=== PATIENT | male | born 1995 | race Caucasian/White ===

== ENCOUNTER 2020-09-11 00:40 | Emergency (ER) | payer BC, SELFPAY ==
[2020-09-11 00:54] VITALS: BP 120/67; PULSE 80; RESP 18; TEMP 36.7; O2SAT 100; BMI 27.1
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
[2020-09-11] MEDS: morphine 4 mg/mL SDV 1 mL 2 MG IVP (01:18)
[2020-09-11 02:10] VITALS: BP 114/63; PULSE 80; RESP 16; O2SAT 97
[2020-09-11] MEDS: ondansetron 2 mg/ML SDV 2 mL 4 MG IVP (02:10)
[2020-09-11 02:20] VITALS: BP 170/102; PULSE 107; RESP 20; O2SAT 99
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
[2020-09-11 02:43] VITALS: BP 162/100; PULSE 111; RESP 31; O2SAT 96
[2020-09-11 02:54] VITALS: BP 162/100; PULSE 101; RESP 17; O2SAT 98
[2020-09-11 04:04] VITALS: BP 128/74; PULSE 98; RESP 20; O2SAT 95
--- NOTE | 2020-09-13 09:02 | DCPLANNER ---
manager [employer] had message to schedule a follow up appointment for patient with ortho for a distal radial fracture. manager [employer] called the ortho clinic, spoke with Alexa, gave clinic patients information. manager [employer] was told that patients information would be printed and reviewed. Clinic will call patient with appointment information.
--- NOTE | 2020-09-14 07:48 | DCPLANNER ---
Patient has a follow up appointment scheduled for Thursday, September 14 at 2:[address] Blanco at [facility]. Clinic will call patient with appointment information.
--- NOTE | 2020-10-14 15:21 | DCPLANNER ---
Patient had a follow up appointment scheduled for 09.14.20 with ortho - patient did attend appointment.
== END 2020-09-11 04:04 | disposition home or self-care (01) ==
PROVIDERS: Emergency Provider Physician Assistant; PCP Internal Medicine
DX: S52.501A Unspecified fracture of the lower end of right radius, initial encounter for closed fracture (principal); S52.614A Nondisplaced fracture of right ulna styloid process, initial encounter for closed fracture; V86.59XA Driver of other special all-terrain or other off-road motor vehicle injured in nontraffic accident, initial encounter
CPT/HCPCS: 25605; 73090; 73100; 73110; 96374; 96375; 99284; J2270; J2405; J3490

== ENCOUNTER → 2020-09-14 15:16 | Outpatient (BNVA) | payer BC, SELFPAY | PROVIDERS: PCP Nurse Practitioner Family; Referring Provider Physician Assistant; Visit Provider Orthopaedic Surgery | DX: S52.501A Unspecified fracture of the lower end of right radius, initial encounter for closed fracture (principal); S52.614A Nondisplaced fracture of right ulna styloid process, initial encounter for closed fracture; X58.XXXA Exposure to other specified factors, initial encounter | CPT/HCPCS: 73110 ==

== ENCOUNTER → 2020-09-21 15:49 | Outpatient (BNVA) | payer BC, SELFPAY | PROVIDERS: PCP Nurse Practitioner Family; Visit Provider Orthopaedic Surgery | DX: S52.614D Nondisplaced fracture of right ulna styloid process, subsequent encounter for closed fracture with routine healing (principal); X58.XXXD Exposure to other specified factors, subsequent encounter | CPT/HCPCS: 73110 ==

== ENCOUNTER 2020-09-21 16:35 | Outpatient (CLI) | payer BC, SELFPAY | END 2020-09-21 16:36 | disposition home or self-care (01) | LOC: SPT 16:36 | PROVIDERS: PCP Nurse Practitioner Family; Visit Provider Orthopaedic Surgery | DX: Z46.89 Encounter for fitting and adjustment of other specified devices (principal); S52.501D Unspecified fracture of the lower end of right radius, subsequent encounter for closed fracture with routine healing; X58.XXXD Exposure to other specified factors, subsequent encounter | CPT/HCPCS: 97760; L3982 ==

== ENCOUNTER → 2020-10-05 15:50 | Outpatient (BNVA) | payer BC, SELFPAY | PROVIDERS: PCP Nurse Practitioner Family; Visit Provider Orthopaedic Surgery | DX: S52.501D Unspecified fracture of the lower end of right radius, subsequent encounter for closed fracture with routine healing (principal); S52.614D Nondisplaced fracture of right ulna styloid process, subsequent encounter for closed fracture with routine healing; X58.XXXD Exposure to other specified factors, subsequent encounter | CPT/HCPCS: 73110 ==

== ENCOUNTER → 2020-10-19 15:19 | Outpatient (BNVA) | payer BC, SELFPAY | PROVIDERS: PCP Nurse Practitioner Family; Visit Provider Orthopaedic Surgery | DX: S52.501D Unspecified fracture of the lower end of right radius, subsequent encounter for closed fracture with routine healing (principal); S52.614D Nondisplaced fracture of right ulna styloid process, subsequent encounter for closed fracture with routine healing; X58.XXXD Exposure to other specified factors, subsequent encounter | CPT/HCPCS: 73110 ==

== ENCOUNTER 2021-02-25 15:16 | Observation (INO) | payer BC, SELFPAY ==
[2021-02-25 15:41] VITALS: BP 125/73; PULSE 93; RESP 18; TEMP 37.3; O2SAT 100; BMI 26.6
--- NOTE | 2021-02-25 17:40 | CTR_ITS ---
PROCEDURE INFORMATION: Exam: CT Pelvis With Contrast Exam date and time: 02/25/2021 5:40 PM Age: 25 years old Clinical indication: Other: Perirectal abscess; Prior surgery; Surgery type: Rectal in 2017 TECHNIQUE: Imaging protocol: Computed tomography images of the pelvis with intravenous contrast. Radiation optimization: All CT scans at this facility use at least one of these dose optimization techniques: automated exposure control; mA and/or kV adjustment per patient size (includes targeted exams where dose is matched to clinical indication); or iterative reconstruction. Contrast material: OMNI 300; Contrast volume: 95 ml; Contrast route: INTRAVENOUS (IV); COMPARISON: CT Abdomen/Pelvis [facility] [address] 04/11/2016 3:12 PM RADIATION DOSE METRICS: Total DLP (mGy-cm): 361.19 FINDINGS: Intestines: No evidence of intestinal obstruction. The appendix is normal. Intraperitoneal space: Unremarkable. No free air. No significant fluid collection. Lymph nodes: Unremarkable. No enlarged lymph nodes. Urinary bladder: Mild urinary bladder wall thickening is noted. Reproductive: Normal as visualized. Bones/joints: Unremarkable. No acute fracture. No dislocation. Soft tissues: U -shaped abscess is noted in the anorectal region measuring approximately 8.5 x 2.[address]/CT pelvis w con* [id number] IMPRESSION: 1. Anorectal U -shaped abscess. 2. Possible mild cystitis, correlate with urinalysis. Radiation Dose CTDIVOL = (mGy): DLP = 361.19 (mGy-cm)
--- NOTE | 2021-02-25 17:43 | ED_ITS ---
Documented by User: Nehemias Gutierrez DO 03/01/21 05:51 HPI - Skin/Abscess/Foreign Bdy General: Chief complaint: Skin/Abscess/Foreign Body Stated complaint: ABSCESS/BOTTOM Time Seen by Provider: 02/25/21 17:21 History of Present Illness: HPI narrative: 25-year-old male who presents to the emergency room with complaint of a perirectal abscess. Years ago he had it removed surgically which recurred he has been just managing it and tolerating it for the last several years actually it has gotten much worse earlier this week he was seen by a local PA started on some oral antibiotics and given pain medications he then followed up with the surgeon who arranged for him to have a CT but he has not had it done yet. complaint: abscess/boil Onset (ago): month(s) Severity: moderate Quality: aching Pain Consistency: constant Relieving factors: none Exacerbating factors: none Associated symptoms: Deny chills, fever(s), nausea or vomiting Treatments prior to arrival: antibiotic Review of Systems Const: Denies: fever(s), chills, body aches, change in appetite, fatigue or malaise ENMT: Denies: throat pain, ear or mastoid pain, nasal discharge or nasal congestion Card: Denies: chest pain, edema, dyspnea on exertion or orthopnea Resp: Denies: dyspnea, productive cough or non-productive cough GI: Denies: abdominal pain, nausea, vomiting, hematemesis, coffee ground emesis, diarrhea, constipation, bloating, hematochezia or melena : Denies: flank pain, dysuria, urinary frequency or urinary urgency Skin/Breast: Denies: rash or pruritus PFSH ED PFSH: Medical History Abscess, anorectal Social History Smoking and tobacco status: current every day smoker e-cigarettes Physical Exam Const: COMMON NORMALS: no acute distress GENERAL APPEARANCE: cooperative and comfortable ORIENTATION/CONSCIOUSNESS: Yes awake, Yes oriented to person, Yes oriented to place and Yes oriented to time HENMT: COMMON NORMALS: normocephalic, atraumatic and hearing grossly normal bilaterally HEAD & SCALP: normocephalic and atraumatic Neck/C-Spine: COMMON NORMALS: no JVD Resp: COMMON NORMALS: normal respiratory effort, No retractions, No use of accessory muscles and clear to auscultation bilaterally AUSCULTATION: clear to auscultation bilaterally Cardio: COMMON NORMALS: no JVD, regular rate, regular rhythm and No murmurs present (Cardio) RATE: regular rate RHYTHM: regular rhythm GI: COMMON NORMALS: Soft to palpation and No hepatosplenomegaly present AUSCULTATION: Yes normoactive bowel sounds PALPATION: Yes Soft to palpation, No Tenderness to palpation present (GI), No Guarding due to palpation present (GI) and Yes No hepatosplenomegaly present OTHER: Purulent drainage from left perirectal abscess. No active bleeding. Extremity: COMMON NORMALS: normal to inspection, capillary refill normal, no clubbing, cyanosis or edema, no calf tenderness and no pedal edema Neuro: SENSORIUM/ORIENTATION: Yes oriented to person, Yes oriented to place and Yes oriented to time Skin: COMMON NORMALS: no rashes or lesions noted GENERAL SKIN EXAM: no rashes or lesions noted Course Vital Signs: Vital signs: Vital Signs Temperature 98.2 F 02/26/21 18:41 Pulse Rate 71 02/26/21 18:41 Respiratory Rate 16 02/26/21 18:41 Blood Pressure 105/69 02/26/21 18:41 Pulse Oximetry 95 02/26/21 18:41 MDM - Skin/Abscess/Foreign Bdy MDM Narrative: Medical decision making narrative: Care turned over to Dr. May at change of shift see his notes for final diagnosis and disposition Lab Data: Labs: Lab Results 02/25/21 02/25/21 18:00 18:00 WBC 10.3 10^3/uL H 10 ^3/uL (4.0-10.0) RBC 4.82 10^6/uL 10^6 /uL (4.1-5.3) Hgb 13.7 g/dL g/dL (11.7-16.6) Hct 41.7 % L % (42.0-52.0) MCV 86.5 fl fl (80-94) MCH 28.4 pg pg (28.0-34.0) MCHC 32.9 g/dL g/dL (30.0-36.0) RDW 12.9 % % (12.1-15.1) Plt Count 247 10^3/cmm 10^3 /cmm (130-400) MPV 10.2 fL fL (7.4-10.4) Neut % (Auto) 78.9 % % Lymph % (Auto) 12.4 % % [place] % (Auto) 7.4 % % Eos % (Auto) 0.7 % % Baso % (Auto) 0.4 % % Neut # (Auto) 8.17 10^3/uL H 10 ^3/uL (1.8-7.7) Lymph # (Auto) 1.3 10^3/uL 10^3/ uL (0.8-4.8) [place] # (Auto) 0.8 10^3/uL 10^3/ uL (0.2-0.9) Eos # (Auto) 0.1 10^3/uL 10^3/ uL (0.0-0.8) Baso # (Auto) 0.0 10^3/uL 10^3/ uL (0.0-0.1) Nucleated RBC % (a uto) 0 % % Nucleated RBCs # 0.0 /100WBC /100W BC Sodium 136 mmol/L mmol/L (136-145) Potassium 3.8 mmol/L mmol/L (3.5-5.1) Chloride 99 mmol/L mmol/L (98-107) Carbon Dioxide 26 mmol/L mmol/L (22-29) Anion Gap 14.8 (5-19) BUN 13 mg/dL mg/dL (6-20) Creatinine 0.7 mg/dL mg/dL (0.7-1.2) GFR Calculation 137.4 mL/min H mL /min (90-130) Glucose 95 mg/dL mg/dL (65-115) Calculated Osmolal ity 282 mOsm/kg L mOs m/kg (285-295) Calcium 8.9 mg/dL mg/dL (8.5-10.5) Total Bilirubin 0.4 mg/dL mg/dL (0.15-1.2) AST 17 U/L U/L (0-40) ALT 25 U/L U/L (0-41) Alkaline Phosphata se 128 IU/L IU/L (40-130) Total Protein 7.0 g/dL g/dL (6.6-8.7) Albumin 4.1 g/dL g/dL (3.5-5.2) Globulin 2.9 g/dL g/dL (1.3-4.6) Discharge Plan Discharge Patient Disposition: Placed in Observation Admit Provider: Tree Alonso Clinical Impression: Abscess, anorectal Discharge Diet: Advance as tolerated Discharge Activity: Increase activity as tolerated Coding Level of Care Code ED [place] for Chg Fwd Exam Comprehensive Documented by User: Ty May DO 02/26/21 02:50 HPI - Skin/Abscess/Foreign Bdy General: Chief complaint: Skin/Abscess/Foreign Body Stated complaint: ABSCESS/BOTTOM Time Seen by Provider: 02/25/21 17:21 PFSH ED PFSH: Medical History Abscess, anorectal Social History Smoking and tobacco status: current every day smoker e-cigarettes Course Vital Signs: Vital signs: Vital Signs Temperature 98.2 F 02/26/21 18:41 Pulse Rate 71 02/26/21 18:41 Respiratory Rate 16 02/26/21 18:41 Blood Pressure 105/69 02/26/21 18:41 Pulse Oximetry 95 02/26/21 18:41 MDM - Skin/Abscess/Foreign Bdy MDM Narrative: Medical decision making narrative: Healthy 25-year-old male with a history of perirectal abscess checked out to me by Dr. Gutierrez at shift change. This gentleman has a tender red indurated and draining perirectal abscess. His white blood cell count is 10. His temperature is 99. By CT scan of the pelvis, he has a U-shaped anal rectal abscess measuring 8.5 cm. Spoke with surgery. He will take to the OR in the morning. Lab Data: Labs: Lab Results 02/25/21 02/25/21 18:00 18:00 WBC 10.3 10^3/uL H 10 ^3/uL (4.0-10.0) RBC 4.82 10^6/uL 10^6 /uL (4.1-5.3) Hgb 13.7 g/dL g/dL (11.7-16.6) Hct 41.7 % L % (42.0-52.0) MCV 86.5 fl fl (80-94) MCH 28.4 pg pg (28.0-34.0) MCHC 32.9 g/dL g/dL (30.0-36.0) RDW 12.9 % % (12.1-15.1) Plt Count 247 10^3/cmm 10^3 /cmm (130-400) MPV 10.2 fL fL (7.4-10.4) Neut % (Auto) 78.9 % % Lymph % (Auto) 12.4 % % [place] % (Auto) 7.4 % % Eos % (Auto) 0.7 % % Baso % (Auto) 0.4 % % Neut # (Auto) 8.17 10^3/uL H 10 ^3/uL (1.8-7.7) Lymph # (Auto) 1.3 10^3/uL 10^3/ uL (0.8-4.8) [place] # (Auto) 0.8 10^3/uL 10^3/ uL (0.2-0.9) Eos # (Auto) 0.1 10^3/uL 10^3/ uL (0.0-0.8) Baso # (Auto) 0.0 10^3/uL 10^3/ uL (0.0-0.1) Nucleated RBC % (a uto) 0 % % Nucleated RBCs # 0.0 /100WBC /100W BC Sodium 136 mmol/L mmol/L (136-145) Potassium 3.8 mmol/L mmol/L (3.5-5.1) Chloride 99 mmol/L mmol/L (98-107) Carbon Dioxide 26 mmol/L mmol/L (22-29) Anion Gap 14.8 (5-19) BUN 13 mg/dL mg/dL (6-20) Creatinine 0.7 mg/dL mg/dL (0.7-1.2) GFR Calculation 137.4 mL/min H mL /min (90-130) Glucose 95 mg/dL mg/dL (65-115) Calculated Osmolal ity 282 mOsm/kg L mOs m/kg (285-295) Calcium 8.9 mg/dL mg/dL (8.5-10.5) Total Bilirubin 0.4 mg/dL mg/dL (0.15-1.2) AST 17 U/L U/L (0-40) ALT 25 U/L U/L (0-41) Alkaline Phosphata se 128 IU/L IU/L (40-130) Total Protein 7.0 g/dL g/dL (6.6-8.7) Albumin 4.1 g/dL g/dL (3.5-5.2) Globulin 2.9 g/dL g/dL (1.3-4.6) Discharge Plan Discharge Patient Disposition: Placed in Observation Admit Provider: Tree Alonso Clinical Impression: Abscess, anorectal Discharge Diet: Advance as tolerated Discharge Activity: Increase activity as tolerated Coding Level of Care Code ED [place] for Chg Fwd Exam Comprehensive
[2021-02-25 18:00] VITALS: BP 131/77; PULSE 86; RESP 16; O2SAT 95; O2SAT 98
[2021-02-25] MEDS: morphine 4 mg/mL SDV 1 mL IVP ×2 (18:00→23:39)
[2021-02-25] MEDS: sodium chloride 0.9% 1,000 ML 999 ML IV (18:00)
[2021-02-25] MEDS: ondansetron 2 mg/ML SDV 2 mL 4 MG IVP (18:00)
--- NOTE | 2021-02-25 18:05 | PC.NURSE ---
pt taken to CT by stretcher with tech
[2021-02-25 18:26] LABS: Basophils % 0.4 %; Eosinophils # 0.1 10^3/uL (0.0-0.8); Eosinophils % 0.7 %; Hematocrit 41.7 % (42.0-52.0); Hemoglobin 13.7 g/dL (11.7-16.6); Lymphocytes # 1.3 10^3/uL (0.8-4.8); Lymphocytes % 12.4 %; Mean Corpuscular HGB Conc 32.9 g/dL (30.0-36.0); Mean Corpuscular Hemoglobin 28.4 pg (28.0-34.0); Mean Corpuscular Volume 86.5 fl (80-94); Mean Platelet Volume 10.2 fL (7.4-10.4); Monocytes # 0.8 10^3/uL (0.2-0.9); Monocytes % 7.4 %; Neutrophils # 8.17 10^3/uL (1.8-7.7); Neutrophils % 78.9 %; Nucleated Red Blood Cells % 0 %; Platelet Count 247 10^3/cmm (130-400); Red Blood Count 4.82 10^6/uL (4.1-5.3); Red Cell Distribution Width 12.9 % (12.1-15.1); White Blood Count 10.3 10^3/uL (4.0-10.0)
--- NOTE | 2021-02-25 18:38 | PC.NURSE ---
pt oriented to room. pt placed in gown. pt on hemodynamic monitoring. call light within reach.
[2021-02-25 18:40] LABS: Albumin Level 4.1 g/dL (3.5-5.2); Alkaline Phosphatase 128 IU/L (40-130); Anion Gap 14.8 (5-19); Aspartate Amino Transferase 17 U/L (0-40); Blood Urea Nitrogen 13 mg/dL (6-20); Calcium 8.9 mg/dL (8.5-10.5); Carbon Dioxide 26 mmol/L (22-29); Chloride 99 mmol/L (98-107); Globulin 2.9 g/dL (1.3-4.6); Glomerular Filtration Rate 137.4 mL/min (90-130); Glucose 95 mg/dL (65-115); Osmolality Calculated 282 mOsm/kg (285-295); Potassium 3.8 mmol/L (3.5-5.1); Sodium 136 mmol/L (136-145); Total Bilirubin 0.4 mg/dL (0.15-1.2)
[2021-02-25 18:50] LABS: Alanine Aminotransferase 25 U/L (0-41)
[2021-02-25] MEDS: iohexol 300 mg/mL 100 mL Btl IV (19:02)
[2021-02-25 22:21] VITALS: BP 103/64; PULSE 76; RESP 18; TEMP 36.8; O2SAT 95; BMI 26.6
[2021-02-25] MEDS: lactated ringers 1,000 ML 150 ML IV (22:50)
[2021-02-25] MEDS: ciprofloxacin 400 MG/200 ML PREMIX 200 MG IV (22:50)
[2021-02-25] MEDS: metroNIDAZOLE IV 500 MG/100 ML PREMIX 100 MG IV (22:51)
[2021-02-25 23:39] VITALS: RESP 18
[2021-02-26] VITALS (22 sets, daily range): BP systolic 83–148; BP diastolic 60–92; PULSE 67–102; RESP 16–18; TEMP 36.3–36.8; O2SAT 90–98
[2021-02-26] MEDS: morphine 4 mg/mL SDV 1 mL IVP (04:32)
[2021-02-26] MEDS: lactated ringers 1,000 ML 150 ML IV ×2 (04:33→16:00)
[2021-02-26 05:21] LABS: Basophils % 0.4 %; Eosinophils # 0.2 10^3/uL (0.0-0.8); Eosinophils % 2.1 %; Hematocrit 40.1 % (42.0-52.0); Hemoglobin 13.1 g/dL (11.7-16.6); Lymphocytes # 1.4 10^3/uL (0.8-4.8); Lymphocytes % 19.8 %; Mean Corpuscular HGB Conc 32.7 g/dL (30.0-36.0); Mean Corpuscular Hemoglobin 28.7 pg (28.0-34.0); Mean Corpuscular Volume 87.7 fl (80-94); Mean Platelet Volume 10.3 fL (7.4-10.4); Monocytes # 0.8 10^3/uL (0.2-0.9); Monocytes % 10.5 %; Neutrophils # 4.77 10^3/uL (1.8-7.7); Neutrophils % 66.9 %; Nucleated Red Blood Cells % 0 %; Platelet Count 221 10^3/cmm (130-400); Red Blood Count 4.57 10^6/uL (4.1-5.3); White Blood Count 7.1 10^3/uL (4.0-10.0)
[2021-02-26 05:39] LABS: Alanine Aminotransferase 19 U/L (0-41); Albumin Level 3.2 g/dL (3.5-5.2); Alkaline Phosphatase 104 IU/L (40-130); Anion Gap 10.7 (5-19); Aspartate Amino Transferase 12 U/L (0-40); Blood Urea Nitrogen 13 mg/dL (6-20); Calcium 8.2 mg/dL (8.5-10.5); Carbon Dioxide 27 mmol/L (22-29); Chloride 103 mmol/L (98-107); Globulin 2.2 g/dL (1.3-4.6); Glomerular Filtration Rate 117.8 mL/min (90-130); Glucose 93 mg/dL (65-115); Osmolality Calculated 284 mOsm/kg (285-295); Potassium 3.7 mmol/L (3.5-5.1); Sodium 137 mmol/L (136-145); Total Bilirubin 0.5 mg/dL (0.15-1.2); Total Protein 5.4 g/dL (6.6-8.7)
--- NOTE | 2021-02-26 06:09 | P.HP_ITS ---
Providers/Chief Complaint Admitting Physician: Tree Alonso MD Primary Care Provider: IRMA Barron Chief Complaint: ABSCESS/BOTTOM History of Present Illness Chief Complaint: I am hurting in the bottom History of present illness: Mr. Franchesca Leiva is a 25 year old male resents to the emergency department complaining of perianal pain and discomfort. Before few years patient had incision and drainage of a perianal abscess. But earlier this week he started to encounter worsening pain and was placed on oral antibiotics per a local physician business services assistant. The plan to follow-up with surgery and apparently the patient had a CT scan supposedly scheduled to investigate this pathology more. But as his symptoms got worse came to the ER with constant pain around the perianal area nothing seems to make it better or worse. Patient denies other institutional symptoms in the form of fevers chills nausea or vomiting. Patient undergone a CT scan of the pelvis with contrast that showed 1. Anorectal U -shaped abscess. 2. Possible mild cystitis, correlate with urinalysis. General surgery was consulted for further evaluation, as I elected to have the patient admitted to my service for potential exam under anesthesia and incision and drainage. After further history taking patient reports that back in 2017 he did have an incision and drainage of left perianal abscess. And he was told to remove the packing after surgery and followed up with his surgeon till it was healed. For the past couple of years patient consistently have had intermittent perianal discharge. And a while ago he did have an episode of bleeding per rectum that was treated conservatively per patient's description as it did not happen again. Patient reports when I asked him that he heard about history of Crohn's disease in the family but he is not sure who had it, also he never had a colonoscopy before. Review of Systems General: Reports: 10 or more systems reviewed and unremarkable except in HPI and below Medications/Allergies Home Medications Medication Instructions Recorded Confirmed Last Taken Type hydrocodone-acetaminophen 1 tab PO Q4H PRN #20 tab 09/11/20 10/19/20 Unknown Rx escitalopram oxalate 10 mg tablet 10 mg PO DAILY 09/14/20 10/19/20 Unknown History Fast Form Cock Up Splint #1 ea 09/21/20 10/19/20 Unknown Rx Allergies Allergy/AdvReac Type Severity Reaction Status Date / Time No Known Allergies Allergy Verified 10/19/20 15:06 PFSH Acute PFSH: Social History Smoking and tobacco status: current every day smoker e-cigarettes Vitals/I&O/Wt Last Vital Signs Temp 97.9 F 02/26/21 03:29 Pulse 71 02/26/21 03:29 Resp 18 02/26/21 04:32 BP 117/63 02/26/21 03:29 Pulse Ox 95 02/26/21 03:29 02/25/21 02/25/21 02/26/21 14:59 22:59 06:59 Intake Total 1000 / 1000 1157.5 / 2157.5 Balance 1000 / 1000 1157.5 / 2157.5 Weight last 48 hrs Weight 170 lb Weight 170 lb Physical Exam Const: COMMON NORMALS: no acute distress and patient oriented x3 GENERAL APPEARANCE: cooperative ORIENTATION/CONSCIOUSNESS: Yes awake, Yes oriented to person, Yes oriented to place and Yes oriented to time HENMT: COMMON NORMALS: normocephalic HEAD & SCALP: normocephalic Eye: COMMON NORMALS: Equal, round and reactive pupils present and no scleral icterus PUPIL: Yes Equal, round and reactive pupils present Lymph: LYMPHATIC: no lymphadenopathy noted Chest: COMMONS NORMALS: normal inspection of the chest Resp: COMMON NORMALS: normal respiratory effort and clear to auscultation bilaterally AUSCULTATION: clear to auscultation bilaterally Cardio: COMMON NORMALS: S1 normal heart sound present and S2 normal heart sound present; negative for No murmurs present (Cardio) HEART SOUNDS: S1 normal heart sound present and S2 normal heart sound present GI: COMMON NORMALS: Soft to palpation; negative for No hepatosplenomegaly present INSPECTION: Yes normal to inspection PALPATION: Yes Soft to palpation, No Firmness to palpation present (GI), No Tenderness to palpation present (GI), No Guarding due to palpation present (GI), No Rigid due to palpation and No No hepatosplenomegaly present RECTAL EXAM: No hemorrhoids, Yes Fistula present (GI) (At 3 o'clock position there is evidence of sinus with mild drainage, no obv), No Laceration(s) present (GI), No Excoriation present (GI), No Anal fissure(s) present, No mass and Yes tenderness OTHER: Actual digital rectal examination was deferred due to pain. So sphincteric tone was not assessed during this clinical encounter due to patient's discomfort. Neuro: COMMON NORMALS: patient oriented x3 SENSORIUM/ORIENTATION: Yes oriented to person, Yes oriented to place and Yes oriented to time Psych: COMMON NORMALS: mental status grossly normal Skin: COMMON NORMALS: no rashes or lesions noted GENERAL SKIN EXAM: no rashes or lesions noted Data : 02/26/21 04:36 02/26/21 04:36 Micro: Microbiology 02/25/21 18:05 Blood Culture - Preliminary Blood SPECIMEN COLLECTED 02/25/21 18:00 Blood Culture - Preliminary Blood SPECIMEN COLLECTED A&P Assessment and plan (1) Abscess, anorectal: After thorough history physical examination and reviewing the chart and images with my personal interpretation. Patient appears to have a recurrent p erianal abscess with a draining sinus at 3 o'clock position that would require examination under anesthesia and drainage with packing. Indications, risks, benefits and alternatives all discussed with the patient and his aunt and in the presence of nursing staff Meghann Taylor. I did discuss in depth and in length the potential risks of infection, bleeding, potential injury of vital structures including but not limited to the external sphincter that may lead to partial or complete incontinence, patient may require future surgical interventions if were to develop a complicated fistula. Which can end up by having a colostomy for diversion of stools. The patient understands that postoperative course will require longer term wound care till he is able to get back to work without limitations. Patient understands and he agrees to proceed with surgery accordingly. An informed consent per chart Status: Acute Attestations Medical Necessity Statement*: Observation status for perioperative care Time Spent in Patient Care: Greater than 35 minutes (>than 50% of time spent in counselling and/or direct pt care on unit) . Coding Level of Care Code Acute Multiple Spindle Screw Machine Operator for [facility] Fwd Exam Comprehensive Diagnoses Abscess, anorectal K61.2
[2021-02-26] MEDS: metroNIDAZOLE IV 500 MG/100 ML PREMIX 100 MG IV ×2 (06:34→15:55)
--- NOTE | 2021-02-26 07:15 | PC.NURSE ---
Received report from Meghann RN on associate merchandise planner. Patient gone to surgery at this time.
--- NOTE | 2021-02-26 07:59 | P.ANESASSM_ITS ---
Pre-Anesthetic Assessment Pre-Anesthetic Assessment: Height/Weight: Height 1.7 m Weight 77.111 kg Temp Pulse Resp BP Pulse Ox 97.9 F 71 18 117/63 95 02/26/21 03:29 02/26/21 03:29 02/26/21 04:32 02/26/21 03:29 02/26/21 03:29 Preop Diagnosis: Perianal abscess Proposed Procedure: Operation Date: 02/26/21 08:10 Proposed Procedures p Perirectal Abscess(Not Applicable) - Tree Alonso MD Was Beta Aliyah taken within 24 hours: N/A Was Clonidine taken within 24 hours: N/A Social: Social History: Tobacco and No alcohol Exam: Pre-Anes Outpt Exam: alert, oriented x 3, clear to auscultation bilaterally and regular rate & rhythm Airway: Submandibular: WNL Cervical ROM: WNL MP: 2 Dentition: Chipped and Loose Pulmonary: Pulmonary: COPD Neuropsych: Neuropsych: Anxiety Anesthetic Plan: ASA status: 2 Anesthesia: General Risk of > 500 ml blood loss (7ml/kg in children): No Meds/Allergies Current Medications: Current Medications Generic Name Dose Route Start Last Admin Trade Name Freq PRN Reason Stop Dose Admin Lactated Ringer's 1,000 mls @ 150 m ls/hr 02/25/21 22:11 02/26/21 04:33 Lactated Ringers IV 150 mls/hr .[id number] SANDRA Administration Ciprofloxacin/Dext jimi 400 mg in 200 mls @ 200 mls/hr 02/25/21 22:11 02/26/21 00:41 Cipro IV Infused Q12H SANDRA Infusion Protocol Metronidazole 500 mg in 100 mls @ 100 mls/hr 02/25/21 23:11 02/26/21 06:34 Flagyl Iv IV 100 mls/hr Q8H SANDRA Administration Protocol Morphine Sulfate 4 mg 02/25/21 22:11 02/26/21 04:32 Morphine 4 Mg/Ml Sdv 1 Ml IVP 4 mg Q4H PRN Administration SEVERE PAIN PFSH Anesthesia PFSH: Social History Smoking and tobacco status: current every day smoker e-cigarettes Data Anesthesia CBC & Chem 7: 02/26/21 04:36 02/26/21 04:36 Other Labs: Laboratory Results - last 48 hr 02/25/21 02/25/21 02/26/21 18:00 18:00 04:36 WBC 10.3 H 7.1 RBC 4.82 4.57 Hgb 13.7 13.1 Hct 41.7 L 40.1 L MCV 86.5 87.7 MCH 28.4 28.7 MCHC 32.9 32.7 RDW 12.9 13.0 Plt Count 247 221 MPV 10.2 10.3 Neut % (Auto) 78.9 66.9 Lymph % (Auto) 12.4 19.8 Sterling % (Auto) 7.4 10.5 Eos % (Auto) 0.7 2.1 Baso % (Auto) 0.4 0.4 Neut # (Auto) 8.17 H 4.77 Lymph # (Auto) 1.3 1.4 Sterling # (Auto) 0.8 0.8 Eos # (Auto) 0.1 0.2 Baso # (Auto) 0.0 0.0 Nucleated RBC % (auto) 0 0 Nucleated RBCs # 0.0 0.0 Sodium 136 Potassium 3.8 Chloride 99 Carbon Dioxide 26 Anion Gap 14.8 BUN 13 Creatinine 0.7 GFR Calculation 137.4 H Glucose 95 Calculated Osmolality 282 L Calcium 8.9 Total Bilirubin 0.4 AST 17 ALT 25 Alkaline Phosphatase 128 Total Protein 7.0 Albumin 4.1 Globulin 2.9 02/26/21 04:36 WBC RBC Hgb Hct MCV MCH MCHC RDW Plt Count MPV Neut % (Auto) Lymph % (Auto) Sterling % (Auto) Eos % (Auto) Baso % (Auto) Neut # (Auto) Lymph # (Auto) Sterling # (Auto) Eos # (Auto) Baso # (Auto) Nucleated RBC % (auto) Nucleated RBCs # Sodium 137 Potassium 3.7 Chloride 103 Carbon Dioxide 27 Anion Gap 10.7 BUN 13 Creatinine 0.8 GFR Calculation 117.8 Glucose 93 Calculated Osmolality 284 L Calcium 8.2 L Total Bilirubin 0.5 AST 12 ALT 19 Alkaline Phosphatase 104 Total Protein 5.4 L D Albumin 3.2 L Globulin 2.2 Micro: Microbiology 02/25/21 18:05 Blood Culture - Preliminary Blood SPECIMEN COLLECTED 02/25/21 18:00 Blood Culture - Preliminary Blood SPECIMEN COLLECTED Cardiac Studies: 2 No Data to Display
[2021-02-26] MEDS: acetaminophen 1,000 MG/100 ML PIGGYBACK 400 MG IV (08:00)
[2021-02-26] MEDS: lidocaine 2% INJ 20 mL INJECTION (08:26)
--- NOTE | 2021-02-26 08:41 | P.OP_ITS ---
Operative Report Date of procedure: February 26, 2021 Pre-op Diagnosis: Perianal abscess Post-op diagnosis: other (Perianal abscess associated with perianal fistula) Post-op Findings: A-Presence of left lateral perianal abscess. B-External fistula opening located at 3:00 o'clock and internal fistula opening located at 2:00 o'clock. 2 to 3 cm from the anal orifice(left lateral). C-Indurated posterior anal sphincter. D-Beefy red rectal mucosa. E-Purulent discharge seen from the internal fistula opening about 10 mL of pus, swabs were taken for cultures and sensitivities. F-Indurated fistula tract Procedure Done: 1-Examination under anesthesia 2-Incision and drainage of perianal abscess of the left side 3-Placement of noncutting seton Implants: Noncutting seton Specimens removed/disposition: Swabs for cultures and sensitivities Surgeon: Tree Alonso Network Support Specialist: Surgical techprice Warren LG and Katharina Circulating nurse Amie Dowell Anesthesia: General (LMA seasonal delivery driver Zeny and Dr. Grajeda) Estimated blood loss (mL): 5 Condition: stable Disposition: observation Procedure: Patient was identified in the holding area and was taken back to the operating room, which was first placed in supine position got intubated by anesthesia, patient was already on theraputic IV antibiotics were given per protocol,Time-out was done verifying the patient's name/date of /planned procedure and destination after the procedure, all were in agreement. Patient was placed in lithotomy position were all pressure points were padded, Prep and drape was done thereafter under the usual sterile technique, perianal examination showed no fissures or Elephant ear like skin tags or perianal swelling except mild induration at 3:00 o'clock with a sinus opening. Digital rectal examination was done shows thickened ring like structure of the posterior anorectal segment about 4 cm from the anal verge with purulent discharge per rectum. A well-lubricated anoscope was then introduced I was able to identify the discharge coming from the 2:00 o'clock position about 3 cm from the anal verge at the left lateral component, with appreciation of no anal masses yet indurated fistula tract between external opening located at external opening 3:00 o'clock and the internal opening at 2:00 o'clock with about 3 cm in length. Likely transsphincteric. Also noticed that the rectal mucosa shows beefy red appearance and congested. I was able to introduce a lacrimal probe well-lubricated from the external opening and guided gently by my examining finger all the way to the internal opening, further drainage of purulent discharge, swabs were obtained for cultures and sensitivities. Further pressing did not reveal more discharge, following that a tonsil clamp was introduced communicating the two openings.At this point vessel loop was placed and encircled around the fistula tract and tied down by 3-0 silk. A total of about 10 mL purulent discharge.Thorough and copious irrigation of the wound with warm normal saline. A pudendal nerve block on the left side was achieved, injecting lidocaine 2% 10 mL , guided by the examining finger towards the ischial spine bilaterally. I applied a piece of Xeroform impregnated lidocaine 2% jelly at the site of the wound and a piece of Surgicel both were rolled up as a Cigar like and and 2-0 silk stitch was applied at the end that faces the exit of the anus as it will be easier to pull out later on, followed by 4 x 4 application and ABD .,a surgical pants was then placed to hold the dressing in place. Count was completed at the end of the procedure, patient was then extubated and was taken to the recovery room in stable condition I was present for the whole entire procedure Recommendations postop Clinically I am concerned that Mr. Leiva has Crohn's disease that he may benefit from further work-up.
--- NOTE | 2021-02-26 09:24 | ANE.PACU2 ---
Inpatient post-anesthesia follow up: Airway intact: Yes Vital signs: Temperature 97.9 F Pulse Rate [Left R adial] 86 Pulse Rate 102 Respiratory Rate 18 Blood Pressure [Le ft Arm] 131/77 Blood Pressure 144/87 Pulse Oximetry 94 Oxygen Delivery Me thod Simple Mask Oxygen Flow Rate 6 Fraction of Inspir ed Oxygen Hydration adequate: Yes Nausea and vomiting: No Pain level: 2 Mental status: Baseline
[2021-02-26] MEDS: fentaNYL 50 mcg/mL INJ 2mL IVP (09:27)
[2021-02-26] MEDS: HYDROcodone-acetaminophen 5-325 mg Tablet 1 TAB PO ×2 (10:41→15:56)
[2021-02-26] MEDS: ciprofloxacin 400 MG/200 ML PREMIX 200 MG IV (10:41)
--- NOTE | 2021-02-26 15:30 | PC.NURSE ---
IV removed intact. Patient tolerated well. Discharge instructions reviewed with patient and significant other. Patient and significant other verbalized understanding. Patient is A&Ox3. Respirations even and non-labored on room air. Patient wheel chaired to private car.
--- NOTE | 2021-02-26 16:17 | P.SS_ITS ---
Short Stay Summary Providers Date of Admit/Discharge: 02/26/21 Attending Provider: Tree Alonso MD Primary Care Provider: IRMA Barron Chief Complaint: ABSCESS/BOTTOM HPI History of Present Illness Chief Complaint: My bottom hurts History of present illness: Mr. Franchesca Leiva is a 25 year old male presents with perianal discomfort and discharge from the left perianal side. Patient presented to the emergency department complaining of perianal pain and discomfort. Before few years patient had incision and drainage of a perianal abscess. But earlier this week he started to encounter worsening pain and was placed on oral antibiotics per a local physician biology research assistant.The plan to follow-up with surgery and apparently the patient had a CT scan supposedly scheduled to investigate this pathology more. But as his symptoms got worse came to the ER with constant pain around the perianal area nothing seems to make it better or worse. Patient denies other institutional symptoms in the form of fevers chills nausea or vomiting. Patient undergone a CT scan of the pelvis with contrast that showed 1. Anorectal U -shaped abscess. 2. Possible mild cystitis, correlate with urinalysis. General surgery was consulted for further evaluation, as I elected to have the patient admitted to my service for potential exam under anesthesia and incision and drainage. And was placed on parenteral antimicrobial therapy in the form of ciprofloxacin and Flagyl. After further history taking patient reports that back in 2017 he did have an incision and drainage of left perianal abscess. And he was told to remove the packing after surgery and followed up with his surgeon till it was healed. For the past couple of years patient consistently have had intermittent perianal discharge. And a while ago he did have an episode of bleeding per rectum that was treated conservatively per patient's description as it did not happen again. Patient reports when I asked him that he heard about history of Crohn's disease in the family but he is not sure who had it, also he never had a colonoscopy before. Undergone examination under anesthesia and incision and drainage of left perianal abscess with noncutting seton placement. Review of Systems General: Reports: 10 or more systems reviewed and unremarkable except in HPI and below Home Meds/Allergies Home Medications and Allergies Home Medications Medication Instructions Recorded Confirmed Type escitalopram oxalate 10 mg tablet 10 mg PO DAILY 09/14/20 10/19/20 History Allergies Allergy/AdvReac Type Severity Reaction Status Date / Time No Known Allergies Allergy Verified 02/26/21 16:19 PFSH Acute PFSH: Medical History Abscess, anorectal Social History Smoking and tobacco status: current every day smoker e-cigarettes Vitals/I&O/Wt Last Vital Signs Temp 98.1 F 02/26/21 15:00 Pulse 76 02/26/21 15:00 Resp 16 02/26/21 15:00 BP 98/70 02/26/21 15:00 Pulse Ox 93 02/26/21 15:00 02/26/21 02/26/21 02/26/21 06:59 14:59 22:59 Intake Total 1157.5 / 2157.5 1900 / 1900 Output Total 0 / 0 Balance 1157.5 / 2157.5 1900 / 1900 Weight last 48 hrs Weight 170 lb Weight 170 lb Physical Exam Narrative: EXAM NARRATIVE: Patient is conscious alert oriented X3 BMI 26.6 Abdomen nontender nondistended soft no organomegaly guarding or rigidity/no signs of peritonitis Perianal exam vessel loop in place and no bleeding Hospital Course Hospital Course This is a pleasant 25 years old gentleman presented with worsening perianal pain and was diagnosed with left perianal abscess. Patient was taken to surgery for examination under anesthesia with incision and drainage of left perianal abscess and seton placement noncutting in nature. Patient overall felt better after surgery and he continued to have stable vital signs and adequate urine output. Tolerating p.o. intake pack was removed after surgery as patient had difficulty in urination but ultimately was able to go. Discharge Summary 25 years old gentleman undergone examination of the incision with incision drainage of left perianal abscess with concern of Crohn's disease. And noncutting seton was placed due to the presence of left perianal fistula, patient made the appropriate criteria for safe discharge home and will plan to have him follow-up with me in the surgery office in 1 week. Further work-up will be required and referred to medical gastroenterology service. Packing was removed at bedside by me as patient had difficulty urination afterwards he was able to void without difficulty. Specific education instructions were given to the patient and his fianc?e with regard to post care SSS Data Data Completed and Pending: Completed Studies During Hospitalization Category Date Time Status CT pelvis w con* [id number] Stat Cat Scan 02/25/21 17:40 Completed Pending at discharge Category Date Time Status Abscess Culture a nd Gram Stain Rout ine Lab 02/26/21 08:37 Results Anaerobic Culture Routine Lab 02/26/21 08:37 Results Blood Culture Sta t Lab 02/25/21 18:05 Results Diagnoses at Discharge Discharge Diagnosis (1) Abscess, anorectal: Status: Resolved Discharge Plan Discharge Patient Disposition: Home Condition: Stable Prescriptions: New hydrocodone-acetaminophen 5-325 mg tablet 1 tab PO Q6H PRN (Reason: pain) Qty: 28 RF: 0 Cipro 500 mg tablet 500 mg PO Q12H 10 Days Qty: 20 RF: 0 Flagyl 500 mg tablet 500 mg PO Q8H 10 Days Qty: 30 RF: 0 Continued escitalopram oxalate [Lexapro] 10 mg tablet 10 mg PO DAILY RF: 0 Discontinued hydrocodone-acetaminophen 5-325 mg tablet 1 tab PO Q4H PRN (Reason: pain) Qty: 20 RF: 0 No Action (DME) Fast Form Cock Up Splint See Rx Instructions .ROUTE .MEDSUPPLY Qty: 1 RF: 0 Discharge Orders: Discharge Order (Routine); Ordered 02/26/21 Ordered By: Tree Alonso Referrals: Josette Kaufman FNP [Primary Care Provider] - Tree Alonso MD [Physician] - (Return to surgery office in 1 week) Discharge Diet: Advance as tolerated Discharge Activity: Increase activity as tolerated Patient Instructions: Crohn Disease (GEN), Sitz Bath (GEN), Abscess Incision and Drainage (DC), Opioid Safety Activity Restrictions/Additional Instructions: 1. Patient can shower after 24 hours from surgery 2. Flossing of the vessel loop daily once or twice, sits baths 3 times a day water at room temperature and adequate Epsom salt. Education about using a bidet for appropriate cleansing and better hygiene 3. Up and walking as tolerated 4. Recommend to have light duty for the patient first 2 weeks after surgery 5. Do not operate heavy machinery or drive while using pain medications. 6.Contact the office or return to the ER for worsening nausea vomiting fevers or chills, or noticing any redness around incision sites or discharge. 7. Avoid constipation 8. Return to surgery office in 1 week for follow-up Attestations Medical Necessity Statement*: Observation for perioperative care Time Spent in Patient Care*: greater than 30 min Time Spent in Smoking Cessation: Time spent discussing smoking cessation with patient: more than 10 minutes Specific Discharge Activities: Specific discharge activities: educating patient and educating and/or supporting family/caregiver Status at Discharge: Cognitive status at discharge: cognitively intact , Behavioral status at discharge: cooperative , Functional status at discharge: independent ambulation Overall status at discharge: patient is progressing back to baseline Quality Metrics Clinical Quality Measures: During this hospital stay, did patient experience: None Coding Level of Care Code Acute Aquaculture Farmer for g Fwd Diagnoses Abscess, anorectal K61.2
[2021-02-26 17:47] LABS: C Reactive Protein 55.7 mg/L (0.0-4.9)
--- NOTE | 2021-02-28 16:30 | PC.RESP ---
SMOKING CESSATION INFORMATION SENT TO PATIENT.
== END 2021-02-26 17:30 | disposition home or self-care (01) ==
LOC: ER 22:14 → MEDSURG 02-26 00:14
PROVIDERS: Family Medicine; Admitting Provider Surgery; Emergency Provider Emergency Medicine; PCP Nurse Practitioner Family; Visit Provider Surgery
PROC: (CPT 46040; principal; 2021-02-26 08:00)
DX: K61.2 Anorectal abscess (principal); K58.9 Irritable bowel syndrome, unspecified; J44.9 Chronic obstructive pulmonary disease, unspecified; F41.9 Anxiety disorder, unspecified; F17.290 Nicotine dependence, other tobacco product, uncomplicated
CPT/HCPCS: 46020; 46270; 36415; 72193; 80053; 85025; 85651; 86140; 87040; 87070; 87075; 87205; 96361; 96365; 96374; 96375; 99285; G0378; J0744; J1100; J2250; J2270; J2405; J2704; J3010; J7030; Q9967; S0030

== ENCOUNTER → 2021-03-31 17:41 | Outpatient (BNVA) | payer BC, SELFPAY | PROVIDERS: PCP Nurse Practitioner Family; Visit Provider Surgery | DX: Z20.822 Contact with and (suspected) exposure to COVID-19 (principal) | CPT/HCPCS: 87635 ==

== ENCOUNTER 2021-04-05 08:51 | Day surgery (SDC) | payer BC, SELFPAY ==
[2021-04-04 14:38] VITALS: BMI 26.6
[2021-04-05] VITALS (9 sets, daily range): BP systolic 90–141; BP diastolic 51–86; PULSE 71–83; RESP 16–20; TEMP 36.1–36.6; O2SAT 93–100
[2021-04-05] MEDS: acetaminophen 1,000 MG/100 ML PIGGYBACK 400 MG IV (09:45)
[2021-04-05] MEDS: sodium chloride 0.9% 1,000 ML 30 ML IV (09:45)
--- NOTE | 2021-04-05 09:49 | W.PM.OPSUD ---
Surgery/Procedure H&P Update DATE OF PROCEDURE: April 05, 2021 DATE H&P PERFORMED: 03/31/21 H&P UPDATE INFORMATION: I have reviewed H&P completed within last 30 days, I have examined patient prior to procedure and No changes to prior documentation PREOP DIAGNOSIS: Perianal abscess, rule out Crohn's disease PRIMARY INDICATION FOR PROCEDURE: The same PLANNED PROCEDURE: Operation Date: 04/05/21 10:30 Proposed Procedures p Exam Under Anesthesia 82341 R10.9 R19.4(Not Applicable) - Tree Alonso MD s EGD 23087 R10.9(Not Applicable) - Tree Alonso MD s Colonoscopy 93398 R19.4(Not Applicable) - Tree Alonso MD
--- NOTE | 2021-04-05 10:00 | ANES.PREANE2 ---
Pre-Anesthetic Assessment Pre-Anesthetic Assessment: Height/Weight: Height 1.7 m Weight 77.111 kg Temp Pulse Resp BP Pulse Ox 97.8 F 71 16 141/82 100 04/05/21 09:21 04/05/21 09:21 04/05/21 09:21 04/05/21 09:21 04/05/21 09:21 Preop Diagnosis: Perianal abscess, rule out Crohn's disease Proposed Procedure: Operation Date: 04/05/21 10:30 Proposed Procedures p Exam Under Anesthesia 73705 R10.9 R19.4(Not Applicable) - Tree Alonso MD s EGD 39292 R10.9(Not Applicable) - Tree Alonso MD s Colonoscopy 63349 R19.4(Not Applicable) - Tree Alonso MD Was Beta Aliyah taken within 24 hours: N/A Was Clonidine taken within 24 hours: N/A Last intake: Intake Last Liquid Date 04/04/21 Last Liquid Time 20:00 Last Solid Date 04/04/21 Last Solid Time 10:30 Social: Social History: No tobacco (Quit tobacco about a month ago) Exam: Pre-Anes Outpt Exam: alert, oriented x 3, clear to auscultation bilaterally and regular rate & rhythm Airway: Submandibular: WNL Cervical ROM: WNL MP: 1 Dentition: Chipped (Missing teeth) History/ROS: No significant history except as noted Pulmonary: Pulmonary: None reported CV/HEM: CV/HEM: None reported : : None reported Hepatic: Hepatic: None reported GI: Comments: Possible Crohns disease, hx of abscess Metabolic: Metabolic: None reported Musc/skel: Musc/skel: None reported Neuropsych: Neuropsych: None reported Anesthetic Plan: ASA status: 2 Anesthesia: Anesthesia Evaluation, General and MAC Risk of > 500 ml blood loss (7ml/kg in children): No Other Pertinent Information: I discussed with patient risk and benefits of MAC and general anesthesia. Plan MAC with possible conversion to general. We discussed nature of MAC including the spectrum of anesthesia and recall ranging from wide awake with complete recall to deep sedation/general anesthesia. Patient understands that this means he may have brief periods of discomfort and/or pain and recall of intraoperative events and stimuli, but that overall he should be comfortable. We discussed the goals of MAC anesthetic including maintenance of spontaneous breathing with natural airway and supplemental O2, patient comfort, successful completion of procedure, and smooth efficient recovery period. Meds/Allergies Current Medications: Current Medications Generic Name Dose Route Start Last Admin Trade Name Freq PRN Reason Stop Dose Admin Sodium Chloride 1,000 mls @ 30 ml s/hr 04/05/21 09:15 04/05/21 09:45 Sodium Chloride 0.9% IV 04/06/21 09:14 30 mls/hr .Q24H SANDRA Administration PFSH Anesthesia PFSH: Medical History (Updated 04/02/21 @ 08:34 by Tree Alonso MD) Abscess, anorectal Pain in left lower leg Data Anesthesia Cardiac Studies: No Data to Display
--- NOTE | 2021-04-05 11:20 | P.OP_ITS ---
Operative Report Date of procedure: April 05, 2021 Pre-op Diagnosis: Perianal abscess, rule out Crohn's disease Post-op diagnosis: same Post-op Findings: Normal gross appearance of the esophagus stomach and duodenum Gastroesophageal junction at 39 cm Extensive inflammatory process occupying the right side of the colon, transverse colon and descending and rectosigmoid area highly concerning for Crohn's disease. Procedure Done: 1-EGD with random multiple biopsies 2-colonoscopy with random multiple biopsies 3-Examination under anesthesia with replacement of left perianal seton 4-placement of endo Resolution clips x4 at the mid and distal esophagus and x1 at the transverse colon Implants: Perianal Prolene suture seton Specimens removed/disposition: Random biopsies obtained from the mid to distal part of the esophagus Random biopsies from the stomach Random biopsies from first part of the duodenum Random biopsies from the second part of the duodenum Random biopsies from ascending colon Random biopsies from transverse colon Random biopsies from descending colon Random biopsies from the sigmoid colon Random biopsies from the rectum Surgeon: Tree Alonso Signal Worker Helper: cd technician Chacorta senior technical business analyst Addison Circulating nurse Shweta Anesthesia: MAC (Danis Diamond) Estimated blood loss (mL): 10 Condition: stable Disposition: same day Procedure: Patient was identified in the holding area, was taken to the OR placed first in supine position, timeout was done verifying the patient's name, date of , and procedure, all were in agreement. IV propofol was infused by the MACHINE ASSISTANT, patient was placed in left lateral position after a bite block was placed in the mouth, started by introducing the EGD via the mouth under direct visualization, the patient was continuously monitored via nuclear monitoring technician, I was able to assess the esophagus stomach and duodenum till the second part. GE junction at 39 cm from the incisors,the remaining of the examination was unremarkable. Multiple biopsies were obtained from the esophagus stomach and first and second parts of the duodenum, elected to place endoclips in the esophagus for hemostasis and approximation of the mucosal edges. The scope was retrieved under direct visualization and gas was deflated,no biopsies were obtained at that point. Following that a digital rectal examination was done that was normal before insertion of the colonoscopy as the perianal seton was in place in the form of vessel loop, the scope was then introduced via the anus under direct visualization, all the way to the cecum, prep of the colon was appropriate, there were no polyps identified or masses or diverticular disease or strictures, extensive inflammatory process concerning for Crohn's disease occupying the right transverse, descending colon and rectosigmoid area was much appreciated. The pill and random biopsies were obtained and they were sent in different specimen cups. The scope was then retrieved back ,time for withdrawal exceeded 9 minutes, gas was deflated on the way out. Retroflex was done at the end showing no abnormalities of the anal canal. Following that examination under anesthesia was done after prep and drape of the perianal area using Betadine. A lubricated self-retaining proctoscope was inserted,started by introducing a wet sponge to prevent any residual colon prep from contaminating the site of the excision, and under direct visualization, the vessel loop was dismantled and a Prolene stitch was placed in the vessel loop and was threaded through the perianal fistula at the left lower perianal area, sequently the Prolene suture was threaded and the Prolene suture was tied down to replace the previous seton to downsize it. Was obtained. The anal pack was removed and ABD was placed followed by surgical pants I Was present for the whole entire procedure Patient tolerated the procedure well and was taken to the recovery area Associated Problem List Diagnoses (1) Indeterminate colitis:
--- NOTE | 2021-04-05 12:35 | PC.NURSE ---
Post op appointment made for patient with Dr. Alonso on April 13 at 1550. Patient notified of appointment.
--- NOTE | 2021-04-05 15:50 | ANE.PACU2 ---
Inpatient post-anesthesia follow up: Airway intact: Yes Vital signs: Temperature 97.0 F Pulse Rate 71 Respiratory Rate 16 Blood Pressure 118/73 Pulse Oximetry 100 Oxygen Delivery Me thod Room Air Oxygen Flow Rate Fraction of Inspir ed Oxygen Hydration adequate: Yes Nausea and vomiting: No Pain level: 3 Mental status: Baseline
== END 2021-04-05 12:55 | disposition home or self-care (01) ==
PROVIDERS: PCP Nurse Practitioner Family; Visit Provider Surgery
PROC: (CPT 43239; principal; 2021-04-05 10:20)
PROC: 0DJ08ZZ Inspection of Upper Intestinal Tract, Via Natural or Artificial Opening Endoscopic (ICD-10-PCS; CPT 43235; 2021-04-05 10:20)
PROC: 0DJD8ZZ Inspection of Lower Intestinal Tract, Via Natural or Artificial Opening Endoscopic (ICD-10-PCS; CPT 45378; 2021-04-05 10:20)
DX: K52.3 Indeterminate colitis (principal); K61.0 Anal abscess; R19.4 Change in bowel habit
CPT/HCPCS: 43239; 45380; 88305; 96365; J2704; J3010; J7030

== ENCOUNTER 2021-06-17 07:39 | Outpatient (CLI) | payer BC, SELFPAY ==
--- NOTE | 2021-06-17 07:53 | CT_ITS ---
WS: [id number] CT ABDOMEN AND PELVIS NONCONTRAST HISTORY: RECTAL FULLNESS, possible abscess. TECHNIQUE: Imaging performed through the abdomen and pelvis. Coronal and sagittal reformats are submi tted. All CT scans at [facility] use at least one of these dose optimization techniques: auto mated exposure control; mA and/or kV adjustment per patient size (includes targeted exams where dose is matched to clinical indication); or iterative reconstruction. DLP: 1125.45 mGy.cm COMPARISON: 02/25/[address] Prior abdomen and pelvis CT 04/11/2016 Lower thorax: Lung bases are clear. Visualized heart is normal. No hiatal hernia. Liver: Normal size liver. No mass or bile duct dilatation. Gallbladder: Normal gallbladder. Pancreas: Normal size and attenuation. Normal pancreatic duct. No pancreatitis or mass. Spleen: Normal. Adrenal glands: Normal. No mass. Right kidney: Nonobstructing 2 mm calcification in the RIGHT renal pelvis. No perinephric stranding o r soft tissue mass. Left kidney: Normal size kidney with no mass or hydronephrosis. Aorta: Normal abdominal aorta, no aneurysm or atherosclerosis. No free fluid, intraperitoneal air or significant lymphadenopathy. GI tract: No GI tract obstruction. There is mild submucosal thickening and stranding focally in the h epatic flexure with adjacent mesenteric stranding. There is additional mild submucosal thickening janina r the terminal ileum. Appendix is normal. No GI tract obstruction. There is a small amount of soft ti ssue inflammation which was not present on the prior studies posterior to the distal coccyx which cou ld be a pilonidal cyst or developing fistula. Cannot confirm fistula or abscess on this examination w ithout contrast. There are a few small foci of air along the region of the anus which may be normal i n the adjacent soft tissues. There is a small lymph node in the RIGHT soft tissues at the level of th e anus. Very slight decreased attenuation and perianal location. Indeterminate for abscess. Abdominal wall: Negative. No hernia. Pelvis: Nondistended urinary bladder. No free fluid or adenopathy in the pelvis. Osseous structures: Unremarkable. CT/CT abdomen pelvis wo con [id number] IMPRESSION: 1. Cannot exclude or confirm abscess without IV contrast. There is very mild i nflammation in the soft tissues posterior to the tip of the coccyx and also pos terior to the anus. These areas would be better evaluated with IV contrast. Sma ll abscesses or cellulitis not excluded. 2. Mild submucosal inflammation focally at the hepatic flexure near the termin al ileum suspicious for mild inflammatory bowel disease such as Crohn's disease . 3. No GI tract obstruction.
[2021-06-17] MEDS: iohexol 300 mg/mL 50 mL Btl PO (09:42)
== END 2021-06-17 07:40 | disposition home or self-care (01) ==
PROVIDERS: PCP Nurse Practitioner Family; Visit Provider Nurse Practitioner Family
DX: R19.8 Other specified symptoms and signs involving the digestive system and abdomen (principal)
CPT/HCPCS: 74176

== ENCOUNTER 2021-09-22 14:05 | Emergency (ER) | payer OTHER, SELFPAY ==
[2021-09-22 14:20] VITALS: BP 119/77; PULSE 69; RESP 14; TEMP 36.7; O2SAT 99
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
[2021-09-22 16:52] VITALS: BP 119/78; PULSE 63; RESP 16; O2SAT 95
--- NOTE | 2021-09-23 08:55 | DCPLANNER ---
Addendum entered by Renata Dyer 10/03/21 17:00: Patient had a follow up appointment scheduled for 09.27.21 with ortho - patient did attend appointment. Addendum entered by Renata Dyer 09/25/21 10:45: Patient has a follow up appointment scheduled for Monday, September 27, 2021 at 8:30 with Bhavik Obrien. Clinic will call patient with appointment information. Original Note: occupational safety and health manager had message to schedule a follow up appointment for patient with ortho. occupational safety and health manager sent patients information to the front office staff at ortho. Patients information will be printed and reviewed. Clinic will call patient with appointment information.
== END 2021-09-22 16:54 | disposition home or self-care (01) ==
PROVIDERS: Emergency Provider Physician Assistant; PCP Nurse Practitioner Family
DX: S49.91XA Unspecified injury of right shoulder and upper arm, initial encounter (principal); V86.65XA Passenger of 3- or 4- wheeled all-terrain vehicle (ATV) injured in nontraffic accident, initial encounter
CPT/HCPCS: 99283

== ENCOUNTER → 2021-09-27 08:15 | Outpatient (BNVA) | payer OTHER, SELFPAY | PROVIDERS: PCP Nurse Practitioner Family; Referring Provider Physician Assistant; Visit Provider Nurse Practitioner Family | DX: S49.91XA Unspecified injury of right shoulder and upper arm, initial encounter (principal); X58.XXXA Exposure to other specified factors, initial encounter | CPT/HCPCS: 73030 ==